=== PATIENT | male | born 2005 | race Caucasian/White ===

== ENCOUNTER 2024-08-12 14:56 | Emergency (ER) | payer SELFPAY ==
[2024-08-12 15:01] VITALS: BMI 24.7
[2024-08-12 16:18] LABS: Amphetamine Screen Urine NEGATIVE (NEGATIVE); Barbiturates Screen Urine NEGATIVE (NEGATIVE); Benzodiazepines Screen Urine NEGATIVE (NEGATIVE); Buprenorphine Screen Urine NEGATIVE (NEGATIVE); Cannabinoid Screen Urine NEGATIVE (NEGATIVE); Cocaine Screen Urine NEGATIVE (NEGATIVE); Methadone Screen Urine NEGATIVE (NEGATIVE); Methamphetamines Screen Urine NEGATIVE (NEGATIVE); Opiate Screen Urine NEGATIVE (NEGATIVE); Oxycodone Screen Urine NEGATIVE (NEGATIVE); Phencyclidine Screen Urine NEGATIVE (NEGATIVE); Tricyclic Antidepressant Urine NEGATIVE (NEGATIVE)
[2024-08-12 16:30] LABS: Basophils Absolute Auto 0.1 10^3/uL (0.0-0.1); Basophils Percent Auto 0.8 % (0.2-2.0); Eosinophils Percent Auto 0.1 % (0.9-7.0); Hematocrit 42.9 % (42.0-54.0); Hemoglobin 14.6 g/dL (14.0-18.0); Immature Granulocytes Abs Auto 0.03 10^3/uL (0.00-0.03); Immature Granulocytes Pct Auto 0.4 % (0.0-0.5); Lymphocytes Absolute Auto 0.9 10^3/uL (1.2-3.8); Lymphocytes Percent Auto 11.7 % (20.5-60.0); Mean Corpuscular Hemoglobin 30.9 pg (25.9-34.0); Mean Corpuscular Volume 90.9 fL (80.0-94.0); Mean Platelet Volume 10.1 fL (9.5-13.5); Monocytes Absolute Auto 0.6 10^3/uL (0.3-0.8); Monocytes Percent Auto 7.2 % (1.7-12.0); Neutrophils Absolute Auto 6.1 10^3/uL (1.4-6.5); Neutrophils Percent Auto 79.8 % (43.0-75.0); Platelet Count 257 10^3/uL (150-450); Red Blood Count 4.72 10^6/uL (4.70-6.10); Red Cell Distribution Width 11.7 % (11.0-15.0); White Blood Count 7.7 10^3/uL (4.0-11.0)
[2024-08-12 16:51] LABS: Alanine Aminotransferase 29 U/L (16-63); Albumin Globulin Ratio 1.6; Albumin Level 4.6 g/dL (3.4-5.0); Alkaline Phosphatase 65 U/L (46-116); Anion Gap 11.4; Aspartate Amino Transferase 20 U/L (15-37); BUN Creatinine Ratio 14.6; Bilirubin Total 0.5 mg/dL (0.2-1.0); Calcium 9.2 mg/dL (8.5-10.1); Carbon Dioxide 27.9 mmol/L (21.0-32.0); Chloride 106 mmol/L (98-107); Estimated GFR (African America >60 (>=60 mL/min/1.73m^2); Estimated GFR (Non-African Ame >60 (>=60 mL/min/1.73m^2); Globulin 2.9 g/dL; Glucose 109 mg/dL (74-106); Potassium 4.3 mmol/L (3.5-5.1); Salicylate <2.8 mg/dL (<=19.9); Sodium 141 mmol/L (136-145); Total Protein 7.5 g/dL (6.4-8.2)
[2024-08-12 16:58] LABS: Acetaminophen <2.0 ug/mL (10.0-30.0); Ethanol <3 mg/dL
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
== END 2024-08-12 18:36 | disposition home or self-care (01) ==
PROVIDERS: Emergency Provider Emergency Medicine
DX: F32.A Depression, unspecified (principal); F41.8 Other specified anxiety disorders; S00.81XA Abrasion of other part of head, initial encounter; W22.01XA Walked into wall, initial encounter; Z91.52 Personal history of nonsuicidal self-harm
CPT/HCPCS: 36415; 80053; 80179; 80307; 80320; 80329; 85025; 99284